=== PATIENT | male | born 1955 | race Caucasian/White ===

== ENCOUNTER 2024-06-21 08:47 | Inpatient (IN) | payer OTHER ==
[2024-06-21 09:45] LABS: POTASSIUM 4.1 mmol/L (3.5-5.1)
[2024-06-21 09:47] LABS: CALCIUM 9.3 mg/dL (8.5-10.1)
[2024-06-21 09:48] LABS: ALBUMIN 4.1 g/dl (3.4-5.0); BLOOD UREA NITROGEN 16.5 mg/dL (7-18)
[2024-06-21 09:51] LABS: CREATININE 1.3 mg/dL (0.55-1.3)
[2024-06-21 09:52] LABS: BILIRUBIN,TOTAL 1.2 mg/dL (0.2-1); TOT PROT 7.2 g/dl (6.4-8.2)
[2024-06-21 09:55] LABS: HEMATOCRIT 39.7 % (35.4-49); HEMOGLOBIN 12.5 GM/dL (11.7-16.9); MCHC 31.6 g/dl (32.0-35.9); MEAN CELL VOLUME 63.1 fl (80-96); MEAN PLT VOLUME 10.1 fl (7.5-11.1); PLATELET COUNT 267 10^3/uL (134-434); RBC 6.29 M/mm3 (4.00-5.60); WHITE BLOOD COUNT 10.6 K/mm3 (4.0-10.0)
[2024-06-21 10:01] LABS: INR 0.97 (0.83-1.09); MCH 19.9 pg (25.7-33.7)
[2024-06-21] MEDS ORDERED: CEFTRIAXONE 1 GM/50 ML BAG ONE (14:45)
[2024-06-21] MEDS: CEFTRIAXONE 1 GM in DEXTROSE 5%-WATER - 50 ML IVPB ONE (14:52)
[2024-06-21] MEDS ORDERED: AZITHROMYCIN IVPB 500 MG/250 ML BAG IVPB ONE (15:16)
[2024-06-21] MEDS: AZITHROMYCIN IVPB 500 MG/250 ML BAG IVPB ONE (15:29)
[2024-06-21 19:35] VITALS: RESP 18
[2024-06-21] MEDS ORDERED: DOPAMINE 400 MG/D5W - 400,000 MCG/250 ML INFUS.BAG IVPB SCH (20:15)
[2024-06-21] MEDS ORDERED: DOPAMINE 400 MG/D5W - 400,000 MCG/250 ML INFUS.BAG IVPB ONE (20:46)
[2024-06-21] MEDS: DOPAMINE 400 MG/D5W - 400,000 MCG/250 ML INFUS.BAG IVPB SCH (21:00)
[2024-06-21] MEDS: MUPIROCIN 2% TOPICAL OINTMENT FOR DECOLONIZATION NS SCH (23:16)
[2024-06-21] MEDS: CHLORHEXIDINE GLUCONATE 4% CLEANSER FOR DECOLONIZATION TP SCH (23:16)
[2024-06-22 02:20] VITALS: BMI 27.5
[2024-06-22 02:42] VITALS: BP 132/50; PULSE 30
[2024-06-22 02:43] VITALS: TEMP 97.4
[2024-06-22] MEDS ORDERED: ENOXAPARIN NA (PORCINE) 30 MG/0.3 ML DISP.SYRIN SQ SCH (10:00)
== END 2024-06-22 | disposition short-term general hospital (02) | DRG 310 ==
LOC: JER 08:47 → JERBED 12:04 → JICU 20:38
PROVIDERS: ADMIT Internal Medicine Pulmonary Disease; ATTEND Internal Medicine Pulmonary Disease
DX: I44.2 Atrioventricular block, complete (principal); R55 Syncope and collapse
CPT/HCPCS: 0241U-QW; 36415; 71045-TC-FY; 80053; 82962; 84484; 85027; 85610; 86850; 86900; 86901; 93005; 93010; 93306-TC; 99291